=== PATIENT | female | born 1950 | race Two or more races ===

== ENCOUNTER 2017-05-27 05:51 | Day surgery (SDC) | payer OTHER ==
[2017-05-27] MEDS: PHENYLephrine 10% 5 ML OPH OPER (06:32)
[2017-05-27] MEDS: CYCLOPENTOLATE 2% 2 ML OPH OPER (06:33)
[2017-05-27] MEDS: NEPAFENAC 0.1% 3 ML OPH OPER (06:33)
[2017-05-27] MEDS: MOXIFLOXACIN 0.5% 3 ML OPH OPER (06:33)
[2017-05-27] MEDS ORDERED: BUPIVACAINE 0.75%/DEXT (SPINAL) 2 ML INJ (06:41)
[2017-05-27] MEDS ORDERED: TIMOLOL 0.5% 5 ML OPH (06:41)
[2017-05-27] MEDS ORDERED: BUPIVACAINE 0.75% (MPF) 10 ML INJ ×2 (06:42→07:33)
[2017-05-27] MEDS ORDERED: SODIUM BICARBONATE (IV ADD) 50 ML (06:42)
[2017-05-27] MEDS ORDERED: EPINEPHrine 1 MG INJ (06:42)
[2017-05-27] MEDS ORDERED: LIDOCAINE 1% (MPF) 10 ML INJ (06:43)
[2017-05-27] MEDS ORDERED: LIDOCAINE 2% (SDV) 5 ML INJ (07:18)
[2017-05-27] MEDS: LIDOCAINE 1% (MPF) 10 ML INJ INJ (07:20)
[2017-05-27] MEDS: TIMOLOL 0.5% 5 ML OPH LEFT EYE (08:11)
[2017-05-27] MEDS ORDERED: FENTAnyl 50 MCG/ML VIAL (08:25)
[2017-05-27] MEDS: FENTAnyl 50 MCG/ML VIAL IV (08:44)
[2017-05-27] MEDS: OXYCODONE/ACETAMINOPHEN (5/325) TAB PO (10:18)
== END 2017-05-27 11:03 | disposition home or self-care (01) ==
LOC: SDS 05:51
DX: H25.12 Age-related nuclear cataract, left eye (principal); E11.9 Type 2 diabetes mellitus without complications; I10 Essential (primary) hypertension; J45.909 Unspecified asthma, uncomplicated
CPT/HCPCS: 66984; 82962